=== PATIENT | male | born 1970 | race Caucasian/White ===

== ENCOUNTER 2016-12-12 14:13 | Observation (INO) | payer BC ==
[~2016-12-12] VITALS: Ht 180.3 cm; Wt 108.0 kg
[2016-12-14] MEDS ORDERED: TRICOR145 MG PO (11:31)
[2016-12-14] MEDS ORDERED: CRESTOR20 MG PO (11:32)
[2016-12-14] MEDS ORDERED: VASCEPA1 GM PO (11:32)
[2016-12-14] MEDS ORDERED: LISINOPRIL10 MG PO (11:32)
[2016-12-14] MEDS ORDERED: LOPRESSOR DPS50 MG PO (11:32)
[2016-12-14] MEDS ORDERED: ASPIR-LOW81 MG PO (11:33)
[2016-12-14] MEDS ORDERED: PERCOCET 7.5-31 EACH PO (11:33)
[2016-12-14] MEDS ORDERED: DAILY MULTIPLE1 EAC1 PO (11:33)
[2016-12-14] MEDS ORDERED: BENEMID DPS500 MG PO (11:33)
--- NOTE | 2016-12-18 10:38 | OR ---
ADMIT: 12/12/2016 RM/LOC: 501 [facility] MR#: [id number] [address] [id number] SAMANTHA SHELTON [address] [place] [address] Operative/Delivery Room Report SEX: M AGE: 46 : 1970 SURGERY DATE: 12/12/2016 SURGEON: Peter Tesfaye MD PREOPERATIVE DIAGNOSIS: Left trimalleolar ankle fracture dislocation. POSTOPERATIVE DIAGNOSIS: Left trimalleolar ankle fracture dislocation along with a left ankle syndesmotic disruption. PROCEDURES: 1. Left ankle open reduction and internal fixation with posterior malleolar fixation. 2. Syndesmotic repair with syndesmotic screw. LOCOMOTIVE FIRER/FIREMAN: JOHNY Thurman. COMPLICATIONS: None. ESTIMATED BLOOD LOSS: 150 mL. TOURNIQUET TIME: 90 minutes. DESCRIPTION OF PROCEDURE: The patient was taken to the operating room, received a general anesthetic. The left lower extremity was prepped and draped in a standard fashion. Once he was asleep, we were able to reduce his posterolateral ankle dislocation, was very unstable though. He had moderate swelling. The tissues were still fairly soft from his acute injury and elected to proceed with fibular fixation. At that point, we had already prepped and draped the leg. We exsanguinated the leg, inflated the tourniquet. Made a lateral incision. Carried the dissection through the subcutaneous tissue. Once we were through subcutaneous tissue and the deep fascia, there was a very comminuted fibular fracture. There was actually one free butterfly fragment from the posterior lateral aspect of the fibula which was a completely free fragment with no soft tissue attachment, the second anterior butterfly fragment which was fairly large. At that point, we cleaned out all fracture hematoma. We initially reduced the anterior large butterfly fragment to the distal fibular fragment and placed a lag screw from anterior to posterior. At that point, we used the free fragment and put into an anatomic position to help turntable engineer fibular length and rotation. At that point, the free butterfly fragment had no soft tissue attachment where it was moderately small. We used the anterior fibular cortex again to help reduce the length and rotation. We were unable to place a second lag screw due to the smaller fragments, holding it reduced with several K-wires initially, hold the fibula in good position. At that point, we placed a plate on the lateral malleolus. We ended up placing 3 cancellous screws distally and about 4 proximally, one of these in a compression mode at the comminuted site grabbing the far cortex of the medial fibula. At that point, there was some slight fibular instability, but we were able to get an anatomic reduction of the entire length of the fibula. At that point by reducing the mortise, the ADMIT: 12/12/2016 RM/LOC: 501 [facility] MR#: [id number] [address] [place], [place] [id number] SAMANTHA SHELTON [address] [facility] [address] [place] [address] Operative/Delivery Room Report SEX: M AGE: 46 : 1970 medial malleolar fragment actually reduced quite nicely. Due to his moderate swelling, we elected not to make a medial incision percutaneously. With two 4.0 cannulated guidewires, reduced the medial malleolar fragment and placed two 46 mm screws with a good purchase. At that point, we had good medial malleolar fixation through a posterolateral approach to the posterior tibia. We were able to put a finger around the posterior malleolus and feel it reduced. There was a fairly thin cortical fragment that was fairly large in the proximal distal aspect. Because of this, we did place one lag screw from anterior to posterior under fluoroscopic guidance grabbing the posterior malleolar fragment. At that point, again there was a little bit of still fibular instability due to the significant injury. We reduced the fibula into the syndesmosis and then placed a 4.0 syndesmotic screw measuring 65 mm across the syndesmosis with a good purchase. At that point, we had good mortise stability, anatomic reduction of all fragments. We then irrigated out the wounds thoroughly, repaired the deep tissue with 0 Vicryl, subcutaneous with 2- 0 Vicryl, placed nylon in the skin. We placed him in a bulky dressing. The tourniquet had been deflated after 90 minutes. He was taken to recovery room in stable condition with no complications. Peter Tesfaye MD/ teresa JOB #: [id number] CC: Peter Tesfaye, Attending Physician NO FAMILY PHYSICIAN, Family Physician
--- NOTE | 2016-12-18 10:38 | HP ---
ADMIT: 12/12/2016 RM/LOC: W.01 [facility] MR#: [id number] [address] [place] [id number] SAMANTHA SHELTON [address] [facility] [address] [place] [address] Pre-OP History and Physical SEX: M AGE: 46 : 1970 DATE OF SERVICE: CHIEF COMPLAINT: Left ankle pain. HISTORY OF PRESENT ILLNESS: The patient is a 46-year-old male who was out in [place], [place] on the night of December 11. He got into a wrestling match with his friend, he ended up falling over. His friend landed on his ankle. He has found have a left ankle fracture dislocation in the [place] emergency room. He initially had a pulseless foot. They did a closed reduction and splinting of his leg. The ER physician called me. By report, they stated they had a good close reduction of his left ankle. They put him in a splint and sent him back to [place]. I am evaluating him today in clinic. He was found have a persistent left ankle dislocation in the posterolateral position. He is now being admitted in the hospital for definitive care. PAST MEDICAL PROBLEMS: None. SURGERIES: None. MEDICATIONS: Include Tylenol. ALLERGIES: NONE. SOCIAL HISTORY: Drinks frequently. REVIEW OF SYSTEMS: Negative. PHYSICAL EXAMINATION: This 46-year-old male in a splint which was not removed due to unknown dislocation. He had good cap refill to all toes. Good sensation to all toes. No pain in the knee or hip. ADMIT: 12/12/2016 RM/LOC: W.01 [facility] MR#: [id number] [address] [place] [id number] SAMANTHA SHELTON [address] [place] [address] Pre-OP History and Physical SEX: M AGE: 46 : 1970 X-RAYS: X-rays obtained today in my office include AP, lateral, and mortise show a left ankle trimalleolar ankle fracture dislocation. The fibula was quite comminuted. IMPRESSION: Left trimalleolar ankle fracture dislocation. PLAN: At this point, due the dislocated ankle, we are going to take him to the surgery tonight. Plan on proceeding with a possible left ankle open reduction and internal fixation if the soft tissues allow. Depending on skin quality, if we are worried, we may have to temporarily put him in a spanning external fixator. He is aware of risks, benefits, and options, and agreed to proceed. Peter Tesfaye MD/ teresa JOB #: [id number] CC: Peter Tesfaye, Attending Physician NO FAMILY PHYSICIAN, Family Physician
== END 2016-12-13 17:58 | disposition home or self-care (01) ==
LOC: WOR 14:13 → 5MS 14:13
PROVIDERS: ADMIT Orthopaedic Surgery
PROC: 0QSH04Z Reposition Left Tibia with Internal Fixation Device, Open Approach (ICD-10-PCS; principal; 2016-12-12)
PROC: 0SQG0ZZ Repair Left Ankle Joint, Open Approach (ICD-10-PCS; principal; 2016-12-12)
DX: S82.852A Displaced trimalleolar fracture of left lower leg, initial encounter for closed fracture (principal); I25.2 Old myocardial infarction; I10 Essential (primary) hypertension; I25.10 Atherosclerotic heart disease of native coronary artery without angina pectoris; M10.9 Gout, unspecified; W19.XXXA Unspecified fall, initial encounter; Y93.72 Activity, wrestling; Z79.899 Other long term (current) drug therapy; Z98.890 Other specified postprocedural states; Z79.82 Long term (current) use of aspirin